=== PATIENT | male | born 1960 | race American Indian/Alaskan Native ===

== ENCOUNTER 2019-02-20 04:45 | Emergency (ER) | payer BC, MEDICARE ==
[2019-02-20] MEDS ORDERED: MORPHINE IV ONE (05:15)
[2019-02-20] MEDS ORDERED: NEO-SYNEPHRINE 1 MG, NACL P/F VIAL (10 ML) 9.9 ML IJ**NOT IV ONE (05:18)
[2019-02-20] MEDS ORDERED: NEO SYNEPHRINE 1 MG in NACL 0.9% 9.9 ML IV ONE (05:30)
[2019-02-20 05:31] LABS: Basophils # (Auto) 0.1 K/mm3 (0.0-0.1); Basophils % (Auto) 0.9 % (0.0-1.8); Eosinophils # (Auto) 0.4 K/mm3 (0.0-0.4); Eosinophils % (Auto) 3.6 % (0.0-4.3); Hematocrit 33.7 % (35.5-45.6); Hemoglobin 10.8 gm/dl (11.8-15.2); Lymphocytes # (Auto) 1.5 K/mm3 (1.2-5.4); Mean Corpuscular HGB Conc 32 % (32-34); Mean Corpuscular Volume 77 fl (84-94); Platelet Count 366 K/mm3 (140-440); Red Blood Count 4.37 M/mm3 (3.65-5.03); Red Cell Distribution Width 18.6 % (13.2-15.2)
[2019-02-20 05:47] LABS: BUN/Creatinine Ratio 6; Blood Urea Nitrogen 8 mg/dL (9-20); Calcium 9.6 mg/dL (8.4-10.2); Hemolysis Index 0
[2019-02-20] MEDS ORDERED: XYLOCAINE 2% INFILTRATI ONE ×2 (06:31→07:49)
[2019-02-20] MEDS ORDERED: NORMODYNE IV ONE ×3 (07:04→07:21)
[2019-02-20] MEDS ORDERED: BRETHINE ONE (07:58)
[2019-02-20] MEDS ORDERED: BRETHINE SUB-Q ONE (08:07)
--- NOTE | 2019-02-20 10:00 | Emergency Department Report ---
ED General Adult HPI - General Chief complaint: Urogenital-Male Stated complaint: PENILE ISSUE Time Seen by Provider: 02/20/19 06:17 Source: patient Mode of arrival: Ambulatory Limitations: No Limitations - History of Present Illness Initial comments: This is a 58 year old male who is had a persistent erection after injecting himself penile injection) with "Tribex". He states he receives this medication from his urologist. He also tells me that he has not taken his blood pressure medicine for at least 3 days. He complains of penile pain. Otherwise he is without complaint. -: Gradual, hour(s) Location: genitals Radiation: non-radiation Severity scale (0 -10): 8 Quality: aching Consistency: intermittent Worsens with: none Associated Symptoms: denies other symptoms - Related Data Previous Rx's Medication Instructions Recorded Last Taken Type Permethrin 5% [Acticin 5% CREAM] 1 applicatio TP ONCE #1 tube 01/02/17 Unknown Rx Sulfamethoxazole/Trimethoprim 1 each PO BID #20 tablet 01/02/17 Unknown Rx [Bactrim DS TAB] cephALEXin [Keflex] 500 mg PO Q6HR #40 capsule 01/02/17 Unknown Rx hydrOXYzine PAMOATE [Vistaril] 25 mg PO Q6HR PRN #12 capsule 01/02/17 Unknown Rx Allergies Allergy/AdvReac Type Severity Reaction Status Date / Time No Known Allergies Allergy Unverified 01/02/17 13:09 ED Review of Systems ROS: Stated complaint: PENILE ISSUE Other details as noted in HPI Constitutional: denies: chills, fever Eyes: denies: eye pain, eye discharge, vision change ENT: denies: ear pain, throat pain Respiratory: denies: cough, shortness of breath, wheezing Cardiovascular: denies: chest pain, palpitations Endocrine: no symptoms reported Gastrointestinal: denies: abdominal pain, nausea, diarrhea Genitourinary: as per HPI Musculoskeletal: denies: back pain, joint swelling, arthralgia Skin: denies: rash, lesions Neurological: denies: headache, weakness, paresthesias Psychiatric: denies: anxiety, depression Hematological/Lymphatic: denies: easy bleeding, easy bruising ED Past Medical Hx - Past Medical History Previous Medical History?: Yes Hx Hypertension: Yes Hx Diabetes: Yes ([place]) - Surgical History Past Surgical History?: Yes Additional Surgical History: LEFT FOOT. LEFT TIBIA. BILATERAL HIP REPLACEMENT. RIGHT HAND SURGERY. HERNIA REPAIR - Social History Smoking Status: Former Smoker Substance Use Type: Alcohol - Medications Home Medications: Home Medications Medication Instructions Recorded Confirmed Last Taken Type Permethrin 5% [Acticin 5% CREAM] 1 applicatio TP ONCE #1 tube 01/02/17 Unknown Rx Sulfamethoxazole/Trimethoprim 1 each PO BID #20 tablet 01/02/17 Unknown Rx [Bactrim DS TAB] cephALEXin [Keflex] 500 mg PO Q6HR #40 capsule 01/02/17 Unknown Rx hydrOXYzine PAMOATE [Vistaril] 25 mg PO Q6HR PRN #12 capsule 01/02/17 Unknown Rx ED Physical Exam - General Limitations: No Limitations General appearance: alert, in no apparent distress - Head Head exam: Present: atraumatic, normocephalic - Eye Eye exam: Present: normal appearance. Absent: scleral icterus - ENT ENT exam: Present: mucous membranes moist - Neck Neck exam: Present: normal inspection - Respiratory Respiratory exam: Present: normal lung sounds bilaterally. Absent: respiratory distress - Cardiovascular Cardiovascular Exam: Present: regular rate, normal rhythm. Absent: systolic murmur, diastolic murmur, rubs, gallop - GI/Abdominal GI/Abdominal exam: Present: soft, normal bowel sounds. Absent: distended, tenderness, guarding, rebound, rigid - Rectal Rectal exam: Present: deferred - exam: Present: other (further engorged erection) - Extremities Exam Extremities exam: Present: normal inspection - Back Exam Back exam: Present: normal inspection - Neurological Exam Neurological exam: Present: alert, oriented X3, CN II-XII intact. Absent: motor sensory deficit - Psychiatric Psychiatric exam: Present: normal affect, normal mood - Skin Skin exam: Present: warm, dry, intact, normal color. Absent: rash ED Course Vital Signs 02/20/19 02/20/19 02/20/19 04:53 05:02 06:56 Temperature 97.9 F Pulse Rate 106 H Respiratory 20 20 Rate Blood Pressure 191/112 182/108 O2 Sat by Pulse 97 Oximetry 02/20/19 07:00 Temperature Pulse Rate Respiratory Rate Blood Pressure 183/117 O2 Sat by Pulse Oximetry - Reevaluation(s) Reevaluation #1: Patient required active management of his uncontrolled hypertension. He states he does have his medicine at home he just fell to take it for the last 3 days. He received a drainage and irrigation procedure with small amount of phenylephrine. This was successful. The patient states that he is ready for discharge. On reexamination his tumescence has markedly decreased. He states that he is back to normal. 02/20/19 09:59 - Penile Procedure Consent Obtained: verbal consent Time Out Performed: No Indication: priapism management Procedural Sedation: No Sedation/Analgesia: opioids Local Anesthesia Used: Lidocaine 1% without EPI Priapism Management: aspiration, phenylephrine injection, injection (other) (irrigation) Patient Tolerated Procedure: well ED Medical Decision Making - Lab Data Result diagrams: 02/20/19 05:17 02/20/19 05:17 Critical care attestation.: If time is entered above; I have spent that time in minutes in the direct care of this critically ill patient, excluding procedure time. ED Disposition Clinical Impression: Priapism, Uncontrolled hypertension Disposition: - TO HOME OR SELFCARE Is pt being admited?: No Does the pt Need Aspirin: No Condition: Stable Instructions: Hypertension (ED), Priapism (ED) Additional Instructions: Follow-up with your primary care provider and urologist or referral doctors as needed. Return any recurrent sustained erection. Obviously do not use that medication again. Compliance with your blood pressure medication is he sexual. Take all your blood pressure medicine when you return home. Compliance with her medication will substantially decrease the risk of multiple complications of hypertension. Return any acute change or problem. Referrals: LEON BEAR MD [Primary Care Provider] - 2-3 Days [facility] [Provider Group] - 3-5 Days Time of Disposition: 10:03
[2019-02-20 11:01] VITALS: BP 176/96
== END 2019-02-20 10:30 | disposition home or self-care (01) ==
LOC: ED 04:45
DX: N48.30 Priapism, unspecified (principal); I10 Essential (primary) hypertension; E11.9 Type 2 diabetes mellitus without complications; Z87.891 Personal history of nicotine dependence; Z98.890 Other specified postprocedural states
CPT/HCPCS: 36415; 54220; 80048; 85025; 85045; 96372; 96374; 96375; 99284; J2270; J2370; J3105